=== PATIENT | female | born 1965 | race Caucasian/White ===

== ENCOUNTER 2016-10-17 06:28 | Inpatient (IN) | payer MEDICAID, OTHER ==
[~2016-10-17] VITALS: Ht 162.6 cm; Wt 61.2 kg
[~2016-10-17 06:28] MED LIST: CARV3 PO; DEXT15SY3 PO; FURO40 PO; LISI2.5T2 PO; METF500T4 PO; SIMV20TA6 PO
[2016-10-17] MEDS ORDERED: GLIP5 PO (06:31)
[2016-10-17 06:41] LABS: GLUCOSE,POINT OF CARE 197 MG/DL (70-110)
[2016-10-17] MEDS ORDERED: ASPIRIN 81 MG CHEWABLE TABLET PO ONE (07:00)
[2016-10-17] MEDS ORDERED: MORPHINE SULFATE 4 MG/ML SYRINGE IVP ONE (07:00)
[2016-10-17 07:10] LABS: BASOPHILS % (AUTO) 0.2 % (0.0-2.0); EOSINOPHILS % (AUTO) 1.5 % (1.0-6.0); HEMATOCRIT 38.8 % (36-46); LYMPHOCYTES # (AUTO) 1.1 K/uL (1.0-4.8); LYMPHOCYTES % (AUTO) 11.2 % (22.0-44.0); MEAN CORPUSCULAR HEMOGLOBIN 24.6 pg (26.0-34.0); MEAN CORPUSCULAR HGB CONC 30.8 G/dL (31.0-37.0); MEAN CORPUSCULAR VOLUME 80 fL (80-100); MONOCYTES # (AUTO) 0.8 K/uL (0.1-1.0); MONOCYTES % (AUTO) 8.3 % (2.0-9.0); NEUTROPHILS # (AUTO) 7.5 K/uL (1.8-7.7); NEUTROPHILS % (AUTO) 78.8 % (40.0-70.0); PLATELET COUNT (AUTO) 226 K/uL (150-450); RED BLOOD CELL COUNT(AUTO) 4.87 MIL/uL (4.00-5.20); RED CELL DISTRIBUTION WIDTH 21.2 % (11.5-14.5); WHITE BLOOD COUNT (AUTO) 9.5 K/uL (4.5-11.0)
[2016-10-17 07:11] LABS: RBC MORPHOLOGY COMMENT ABNORMAL RBC MORPH
[2016-10-17 07:31] LABS: B-TYPE NATRIURETIC PEPTIDE 1640 pg/mL (0-100)
[2016-10-17 07:34] LABS: ANION GAP 10 mmol/L (8-16); CALCIUM, TOTAL 8.5 mg/dL (8.8-10.5); CARBON DIOXIDE 24 mmol/L (22-29); CHLORIDE 103 mmol/L (98-107); CREATININE 0.91 mg/dL (0.60-1.30); GLOMERULAR FILTR. RATE CALC > 60 mL/min (>60); POTASSIUM 4.3 mmol/L (3.5-5.1); SODIUM SERUM 137 mmol/L (136-145); UREA NITROGEN, BLOOD 23 mg/dL (7-18)
[2016-10-17 07:41] LABS: ALANINE AMINOTRANSFERASE 44 U/L (12-78); ALBUMIN 2.9 g/dL (3.4-5.0); ASPARTATE AMINOTRANSFERASE 47 U/L (15-37); BILIRUBIN,TOTAL 0.8 mg/dL (0.1-1.0); CREATINE KINASE, TOTAL 61 U/L (26-192); TOTAL PROTEIN, SERUM 7.2 g/dL (6.4-8.2)
[2016-10-17] MEDS ORDERED: METOCLOPRAMIDE HCL 5 MG/ML 2 ML VIAL IVP ONE (08:00)
[2016-10-17] MEDS ORDERED: FUROSEMIDE 40 MG/4 ML VIAL IVP ONE (08:00)
[2016-10-17] MEDS ORDERED: MAGNESIUM HYDROXIDE SUSPENSION 30 ML UDCUP PO PRN (08:45)
[2016-10-17] MEDS ORDERED: ONDANSETRON HCL 4 MG/2 ML VIAL IVP PRN (08:45)
[2016-10-17] MEDS ORDERED: BISACODYL 10 MG RECTAL RECTAL SUPPOSITORY PR PRN (08:45)
[2016-10-17] MEDS ORDERED: DEXTROSE 50%-WATER 25 GM/50 ML SYRINGE IVP PRN (09:00)
[2016-10-17] MEDS ORDERED: CARVEDILOL 3.125 MG TABLET PO SCH (09:00)
[2016-10-17] MEDS ORDERED: LISINOPRIL 5 MG TABLET PO SCH (09:00)
[2016-10-17] MEDS: FUROSEMIDE 40 MG/4 ML VIAL IVP SCH ×2 (09:00→20:55)
[2016-10-17] MEDS: PANTOPRAZOLE SODIUM 40 MG DR TABLET PO SCH (09:26)
[2016-10-17 10:26] VITALS: BP 120/71
[2016-10-17 11:26] VITALS: BP 110/73
[2016-10-17] MEDS: INSULIN ASPART 100 UNITS/ML SQ PRN ×3 (12:44→21:08)
[2016-10-17 13:56] LABS: GLUCOSE,POINT OF CARE 179 MG/DL (70-110)
[2016-10-17] MEDS: OxyCODONE HCL/ACETAMINOPHEN 5-325 MG TABLET PO PRN (13:59)
[2016-10-17] MEDS ORDERED: INFLUENZA VIRUS VACCINE QVS 2016-17 (3YR+)/PF 60 MCG/0.5 ML SYRINGE IM ONE (14:00)
[2016-10-17 15:13] VITALS: BP 116/72
[2016-10-17] MEDS: HEPARIN SODIUM,PORCINE 5,000 UNITS/ML VIAL SQ SCH ×2 (16:24→23:26)
[2016-10-17] MEDS: SPIRONOLACTONE 25 MG TABLET PO SCH (16:24)
[2016-10-17] MEDS: MetFORMIN HCL 500 MG TABLET PO SCH ×2 (17:43→18:00)
[2016-10-17 19:46] VITALS: BP 109/64
[2016-10-17] MEDS: CARVEDILOL 6.25 MG TABLET PO SCH (21:03)
[2016-10-17] MEDS: ZOLPIDEM TARTRATE 5 MG TABLET PO PRN (21:04)
[2016-10-17 22:46] LABS: GLUCOSE COMMENT 1 Received Meds; GLUCOSE,POINT OF CARE 164 MG/DL (70-110)
[2016-10-17 23:42] VITALS: BP 114/73
[2016-10-18] VITALS (9 sets, daily range): BP systolic 97–118; BP diastolic 59–72
[2016-10-18] MEDS: GlipiZIDE 5 MG TABLET PO SCH (06:05)
[2016-10-18] MEDS: INSULIN ASPART 100 UNITS/ML SQ PRN ×3 (06:14→20:49)
[2016-10-18] MEDS: OxyCODONE HCL/ACETAMINOPHEN 5-325 MG TABLET PO PRN ×2 (06:14→17:39)
[2016-10-18 06:47] LABS: BASOPHILS % (AUTO) 0.3 % (0.0-2.0); EOSINOPHILS % (AUTO) 2.7 % (1.0-6.0); HEMATOCRIT 35.2 % (36-46); HEMOGLOBIN 10.9 g/dL (12.0-16.0); LYMPHOCYTES # (AUTO) 1.1 K/uL (1.0-4.8); LYMPHOCYTES % (AUTO) 16.8 % (22.0-44.0); MEAN CORPUSCULAR HEMOGLOBIN 24.8 pg (26.0-34.0); MEAN CORPUSCULAR HGB CONC 31.1 G/dL (31.0-37.0); MEAN CORPUSCULAR VOLUME 80 fL (80-100); MONOCYTES # (AUTO) 0.7 K/uL (0.1-1.0); MONOCYTES % (AUTO) 10.5 % (2.0-9.0); NEUTROPHILS # (AUTO) 4.5 K/uL (1.8-7.7); NEUTROPHILS % (AUTO) 69.7 % (40.0-70.0); PLATELET COUNT (AUTO) 207 K/uL (150-450); RED BLOOD CELL COUNT(AUTO) 4.41 MIL/uL (4.00-5.20); RED CELL DISTRIBUTION WIDTH 21.2 % (11.5-14.5); WHITE BLOOD COUNT (AUTO) 6.5 K/uL (4.5-11.0)
[2016-10-18 07:11] LABS: ALBUMIN 2.5 g/dL (3.4-5.0); BILIRUBIN,TOTAL 0.9 mg/dL (0.1-1.0); CALCIUM, TOTAL 8.4 mg/dL (8.8-10.5); CREATININE 1.03 mg/dL (0.60-1.30); MAGNESIUM 1.6 mg/dL (1.80-2.40); POTASSIUM 4.3 mmol/L (3.5-5.1); TOTAL PROTEIN, SERUM 6.4 g/dL (6.4-8.2)
[2016-10-18] MEDS: MetFORMIN HCL 500 MG TABLET PO SCH ×2 (08:10→17:57)
[2016-10-18] MEDS: HEPARIN SODIUM,PORCINE 5,000 UNITS/ML VIAL SQ SCH ×3 (08:11→23:54)
[2016-10-18] MEDS: PANTOPRAZOLE SODIUM 40 MG DR TABLET PO SCH (08:12)
[2016-10-18] MEDS: SPIRONOLACTONE 25 MG TABLET PO SCH (08:20)
[2016-10-18] MEDS ORDERED: MAGNESIUM SULFATE 4 GM/WATER 100 ML IV PRN (08:30)
[2016-10-18] MEDS ORDERED: MAGNESIUM SULFATE 2 GM in DEXTROSE 5%-WATER 50 ML IV PRN (08:30)
[2016-10-18] MEDS: LISINOPRIL 5 MG TABLET PO SCH (09:00)
[2016-10-18] MEDS: CARVEDILOL 6.25 MG TABLET PO SCH ×2 (09:00→21:51)
[2016-10-18 09:59] LABS: RBC MORPHOLOGY COMMENT ABNORMAL RBC MORPH
[2016-10-18] MEDS ORDERED: SODIUM CHLORIDE 0.9% 100 ML ONE (11:34)
[2016-10-18] MEDS ORDERED: BARIUM SULFATE 0.1% SUSPENSION 450 ML BOTTLE ONE (11:34)
[2016-10-18] MEDS ORDERED: IOVERSOL 320 MG/ML 100 ML VIAL ONE (11:34)
[2016-10-18] MEDS: MAGNESIUM OXIDE 400 MG TABLET PO PRN ×2 (14:21→19:13)
[2016-10-18] MEDS: FUROSEMIDE 40 MG/4 ML VIAL IVP SCH ×2 (14:22→20:33)
[2016-10-18 20:42] LABS: GLUCOSE,POINT OF CARE 196 MG/DL (70-110)
[2016-10-18] MEDS: ZOLPIDEM TARTRATE 5 MG TABLET PO PRN (21:51)
[2016-10-19 00:05] VITALS: BP 105/66
[2016-10-19] MEDS: MAGNESIUM OXIDE 400 MG TABLET PO PRN (00:48)
[2016-10-19 04:58] VITALS: BP 102/67
[2016-10-19 05:53] LABS: BASOPHILS # (AUTO) 0.03 K/uL (0.00-0.20); BASOPHILS % (AUTO) 0.4 % (0.0-2.0); EOSINOPHILS # (AUTO) 0.21 K/uL (0.00-0.70); HEMOGLOBIN 10.8 g/dL (12.0-16.0); LYMPHOCYTES # (AUTO) 1.1 K/uL (1.0-4.8); LYMPHOCYTES % (AUTO) 16.1 % (22.0-44.0); MEAN CORPUSCULAR HEMOGLOBIN 25.1 pg (26.0-34.0); MEAN CORPUSCULAR HGB CONC 31.8 G/dL (31.0-37.0); MEAN CORPUSCULAR VOLUME 79 fL (80-100); MONOCYTES # (AUTO) 0.7 K/uL (0.1-1.0); MONOCYTES % (AUTO) 10.6 % (2.0-9.0); NEUTROPHILS # (AUTO) 4.6 K/uL (1.8-7.7); NEUTROPHILS % (AUTO) 69.7 % (40.0-70.0); PLATELET COUNT (AUTO) 221 K/uL (150-450); RED BLOOD CELL COUNT(AUTO) 4.31 MIL/uL (4.00-5.20); RED CELL DISTRIBUTION WIDTH 21.4 % (11.5-14.5); WHITE BLOOD COUNT (AUTO) 6.6 K/uL (4.5-11.0)
[2016-10-19 06:33] LABS: ALBUMIN 2.6 g/dL (3.4-5.0); BILIRUBIN,TOTAL 0.8 mg/dL (0.1-1.0); CALCIUM, TOTAL 8.6 mg/dL (8.8-10.5); CREATININE 1.22 mg/dL (0.60-1.30); MAGNESIUM 1.9 mg/dL (1.80-2.40); POTASSIUM 4.4 mmol/L (3.5-5.1); TOTAL PROTEIN, SERUM 6.5 g/dL (6.4-8.2)
[2016-10-19] MEDS: GlipiZIDE 5 MG TABLET PO SCH (06:37)
[2016-10-19] MEDS: INSULIN ASPART 100 UNITS/ML SQ PRN ×2 (06:41→11:57)
[2016-10-19 07:19] VITALS: BP 101/64
[2016-10-19 07:58] LABS: RBC MORPHOLOGY COMMENT ABNORMAL RBC MORPH
[2016-10-19] MEDS: HEPARIN SODIUM,PORCINE 5,000 UNITS/ML VIAL SQ SCH (08:00)
[2016-10-19] MEDS: MetFORMIN HCL 500 MG TABLET PO SCH (08:00)
[2016-10-19] MEDS: LISINOPRIL 5 MG TABLET PO SCH (09:00)
[2016-10-19] MEDS: FUROSEMIDE 40 MG/4 ML VIAL IVP SCH (09:55)
[2016-10-19] MEDS: OxyCODONE HCL/ACETAMINOPHEN 5-325 MG TABLET PO PRN (09:59)
[2016-10-19] MEDS: CARVEDILOL 6.25 MG TABLET PO SCH (09:59)
[2016-10-19] MEDS: PANTOPRAZOLE SODIUM 40 MG DR TABLET PO SCH (09:59)
[2016-10-19] MEDS: SPIRONOLACTONE 25 MG TABLET PO SCH (10:00)
[2016-10-19 12:04] VITALS: BP 103/60
[2016-10-19] MEDS ORDERED: SPIR25 PO (13:48)
[2016-10-19] MEDS ORDERED: PANT40TA25 PO (13:48)
[2016-10-19] MEDS ORDERED: SIMV-259 PO (13:48)
[2016-10-19 20:15] LABS: GLUCOSE,POINT OF CARE 211 MG/DL (70-110)
[2016-10-20 06:57] LABS: GLUCOSE,POINT OF CARE 138 MG/DL (70-110)
[2016-10-20 06:57] LABS: GLUCOSE,POINT OF CARE 161 MG/DL (70-110)
[2016-10-20 06:57] LABS: GLUCOSE COMMENT 1 Received Meds; GLUCOSE,POINT OF CARE 250 MG/DL (70-110)
[2016-10-20 06:57] LABS: GLUCOSE COMMENT 1 Received Meds; GLUCOSE,POINT OF CARE 212 MG/DL (70-110)
[2016-10-21 20:00] LABS: GLUCOSE COMMENT 1 Received Meds; GLUCOSE,POINT OF CARE 145 MG/DL (70-110)
== END 2016-10-19 16:00 | disposition home or self-care (01) | DRG 194 ==
LOC: EMS 06:30 → 5N 08:42
PROVIDERS: ADMIT Hospitalist; ATTEND Hospitalist
DX: I11.0 Hypertensive heart disease with heart failure (principal); I47.2 Ventricular tachycardia; R18.8 Other ascites; E44.0 Moderate protein-calorie malnutrition; I42.8 Other cardiomyopathies; I27.2 Other secondary pulmonary hypertension; N20.0 Calculus of kidney; R16.2 Hepatomegaly with splenomegaly, not elsewhere classified; I50.23 Acute on chronic systolic (congestive) heart failure; I25.10 Atherosclerotic heart disease of native coronary artery without angina pectoris; E78.00 Pure hypercholesterolemia, unspecified; I34.0 Nonrheumatic mitral (valve) insufficiency; S46.812A Strain of other muscles, fascia and tendons at shoulder and upper arm level, left arm, initial encounter; X58.XXXA Exposure to other specified factors, initial encounter; E11.9 Type 2 diabetes mellitus without complications; E78.5 Hyperlipidemia, unspecified; G89.29 Other chronic pain; K80.20 Calculus of gallbladder without cholecystitis without obstruction; Z95.810 Presence of automatic (implantable) cardiac defibrillator; Z68.23 Body mass index [BMI] 23.0-23.9, adult; Z79.899 Other long term (current) drug therapy; Z98.890 Other specified postprocedural states; Z91.19 Patient's noncompliance with other medical treatment and regimen; Y93.89 Activity, other specified; Y92.89 Other specified places as the place of occurrence of the external cause; Y99.8 Other external cause status; Z28.21 Immunization not carried out because of patient refusal
CPT/HCPCS: 74177; 82962; 83735; 93005; 93306; 96374; 96375; 99285; J1644; J1940; J2270; J2765; J7050

== ENCOUNTER 2017-12-26 10:48 | Inpatient (IN) | payer MEDICAID, OTHER ==
[~2017-12-26] VITALS: Ht 165.1 cm; Wt 60.6 kg
[~2017-12-26 10:48] MED LIST changes: -DEXT15SY3 PO; +GLIP5 PO; +PANT40TA25 PO; +SIMV-259 PO; -SIMV20TA6 PO; +SPIR25 PO
[2017-12-26] MEDS ORDERED: BACL10TA PO (11:20)
[2017-12-26] MEDS ORDERED: LISI-661 PO (11:20)
[2017-12-26] MEDS ORDERED: INSLAN SQ (11:20)
[2017-12-26] MEDS ORDERED: MULT-1203 PO (11:20)
[2017-12-26 11:54] LABS: BASOPHILS % (AUTO) 0.4 % (0.0-2.0); EOSINOPHILS % (AUTO) 1.1 % (1.0-6.0); HEMATOCRIT 39.2 % (36-46); HEMOGLOBIN 13.2 g/dL (12.0-16.0); LYMPHOCYTES # (AUTO) 1.1 K/uL (1.0-4.8); MEAN CORPUSCULAR HEMOGLOBIN 28.9 pg (26.0-34.0); MEAN CORPUSCULAR HGB CONC 33.8 G/dL (31.0-37.0); MEAN CORPUSCULAR VOLUME 85 fL (80-100); MONOCYTES # (AUTO) 0.5 K/uL (0.1-1.0); MONOCYTES % (AUTO) 6.3 % (2.0-9.0); NEUTROPHILS % (AUTO) 78.2 % (40.0-70.0); PLATELET COUNT (AUTO) 207 K/uL (150-450); RED BLOOD CELL COUNT(AUTO) 4.59 MIL/uL (4.00-5.20); RED CELL DISTRIBUTION WIDTH 13.9 % (11.5-14.5)
[2017-12-26 12:07] LABS: ALBUMIN 3.4 g/dL (3.4-5.0); BILIRUBIN,TOTAL 0.4 mg/dL (0.1-1.0); CALCIUM, TOTAL 8.7 mg/dL (8.8-10.5); CREATININE 1.04 mg/dL (0.60-1.30); POTASSIUM 4.6 mmol/L (3.5-5.1); TOTAL PROTEIN, SERUM 7.2 g/dL (6.4-8.2)
[2017-12-26] MEDS ORDERED: SODIUM CHLORIDE 0.9% 1,000 ML IV ONE (12:30)
[2017-12-26] MEDS ORDERED: SODIUM CHLORIDE 0.9% 100 ML ONE (13:44)
[2017-12-26] MEDS ORDERED: IOVERSOL 350 MG/ML 100 ML VIAL ONE (13:44)
[2017-12-26 14:02] LABS: GLUCOSE,POINT OF CARE 387 MG/DL (70-110)
[2017-12-26] MEDS ORDERED: INSULIN REGULAR, HUMAN 100 UNITS/ML IVP ONE (14:30)
[2017-12-26 16:18] LABS: GLUCOSE,POINT OF CARE 173 MG/DL (70-110)
[2017-12-26 18:42] LABS: GLUCOSE,POINT OF CARE 173 MG/DL (70-110)
[2017-12-26] MEDS ORDERED: ONDANSETRON HCL 4 MG/2 ML VIAL IVP PRN ×2 (20:15→23:00)
[2017-12-26] MEDS ORDERED: ACETAMINOPHEN 325 MG TABLET PO PRN ×2 (20:15→23:00)
[2017-12-26] MEDS ORDERED: 0.9% SODIUM CHLORIDE 10 ML SYRINGE IVP PRN ×2 (20:15→23:00)
[2017-12-26 20:27] VITALS: BP 136/80
[2017-12-26] MEDS ORDERED: DEXTROSE 50%-WATER 25 GM/50 ML SYRINGE IVP PRN (23:00)
[2017-12-26] MEDS ORDERED: IPRATROPIUM BROMIDE 0.5 MG/2.5 ML NEB SOLUTION NEB PRN (23:00)
[2017-12-26] MEDS ORDERED: ZOLPIDEM TARTRATE 5 MG TABLET PO PRN (23:00)
[2017-12-26] MEDS ORDERED: ALBUTEROL SULFATE 2.5 MG/0.5 ML NEB SOLUTION NEB PRN (23:00)
[2017-12-26] MEDS: HEPARIN SODIUM,PORCINE 5,000 UNITS/ML VIAL SQ SCH (23:37)
[2017-12-27 00:17] VITALS: BP 130/76
[2017-12-27] MEDS: IPRATROPIUM BROMIDE 0.5 MG/2.5 ML NEB SOLUTION NEB SCH ×3 (02:00→13:50)
[2017-12-27] MEDS: ALBUTEROL SULFATE 2.5 MG/0.5 ML NEB SOLUTION NEB SCH ×3 (02:00→13:50)
[2017-12-27 04:57] VITALS: BP 137/75
[2017-12-27 05:58] LABS: BASOPHILS % (AUTO) 0.8 % (0.0-2.0); EOSINOPHILS % (AUTO) 1.7 % (1.0-6.0); HEMATOCRIT 39.9 % (36-46); HEMOGLOBIN 13.5 g/dL (12.0-16.0); LYMPHOCYTES # (AUTO) 1.6 K/uL (1.0-4.8); LYMPHOCYTES % (AUTO) 19.4 % (22.0-44.0); MEAN CORPUSCULAR HEMOGLOBIN 28.5 pg (26.0-34.0); MEAN CORPUSCULAR HGB CONC 33.7 G/dL (31.0-37.0); MEAN CORPUSCULAR VOLUME 85 fL (80-100); MONOCYTES # (AUTO) 0.6 K/uL (0.1-1.0); MONOCYTES % (AUTO) 6.9 % (2.0-9.0); NEUTROPHILS # (AUTO) 5.8 K/uL (1.8-7.7); NEUTROPHILS % (AUTO) 71.2 % (40.0-70.0); PLATELET COUNT (AUTO) 171 K/uL (150-450); RED BLOOD CELL COUNT(AUTO) 4.73 MIL/uL (4.00-5.20); RED CELL DISTRIBUTION WIDTH 14.1 % (11.5-14.5)
[2017-12-27] MEDS: INSULIN LISPRO 100 UNITS/ML SQ PRN ×3 (06:01→17:33)
[2017-12-27 06:40] LABS: ALANINE AMINOTRANSFERASE 46 U/L (12-78); ALBUMIN 3.2 g/dL (3.4-5.0); ALKALINE PHOSPHATASE 168 U/L (46-116); ANION GAP 9 mmol/L (8-16); ASPARTATE AMINOTRANSFERASE 28 U/L (15-37); BILIRUBIN,TOTAL 0.4 mg/dL (0.1-1.0); CALCIUM, TOTAL 8.9 mg/dL (8.8-10.5); CARBON DIOXIDE 26 mmol/L (22-29); CHLORIDE 101 mmol/L (98-107); CHOL/HDL RATIO 8.3 (3.9-5.7); CHOLESTEROL 199 mg/dL (131-200); CREATININE 0.75 mg/dL (0.60-1.30); GLOMERULAR FILTR. RATE CALC > 60 mL/min (>60); GLUCOSE,RANDOM 294 mg/dL (70-110); HDL CHOLESTEROL 24 mg/dL (40-60); LDL CHOL (CALC.) 131 mg/dL (0-130); POTASSIUM 4.3 mmol/L (3.5-5.1); SODIUM SERUM 136 mmol/L (136-145); THYROID STIMULATING HORMONE 1.98 uIU/mL (0.36-3.74); TOTAL PROTEIN, SERUM 6.9 g/dL (6.4-8.2); TRIGLYCERIDES 221 mg/dL (15-150); UREA NITROGEN, BLOOD 17 mg/dL (7-18)
[2017-12-27 08:19] VITALS: BP 130/74
[2017-12-27] MEDS: HEPARIN SODIUM,PORCINE 5,000 UNITS/ML VIAL SQ SCH ×2 (08:20→15:44)
[2017-12-27] MEDS: BACLOFEN 10 MG TABLET PO SCH ×2 (08:24→15:44)
[2017-12-27] MEDS ORDERED: PANTOPRAZOLE SODIUM 40 MG/VIAL IVP SCH (09:00)
[2017-12-27] MEDS ORDERED: LISINOPRIL 10 MG TABLET PO SCH (09:00)
[2017-12-27 11:30] VITALS: BP 101/60
[2017-12-27] MEDS ORDERED: SODIUM CHLORIDE 0.9% 50 ML ONE (13:14)
[2017-12-27] MEDS ORDERED: MAGNESIUM SULFATE 2 GM in DEXTROSE 5%-WATER 50 ML IV ONE (13:15)
[2017-12-27] MEDS ORDERED: ASPI81TA39 PO (14:07)
[2017-12-27] MEDS ORDERED: ATOR20TA86 PO (14:07)
[2017-12-27 14:57] LABS: GLUCOMETER DEV NAME(LOC) 5N 2S; GLUCOSE,POINT OF CARE 254 MG/DL (70-110)
[2017-12-27 15:42] VITALS: BP 109/58
[2017-12-27 20:38] LABS: GLUCOMETER DEV NAME(LOC) 5N 2S; GLUCOSE,POINT OF CARE 275 MG/DL (70-110)
[2017-12-27 20:43] LABS: GLUCOMETER DEV NAME(LOC) 5S 2N; GLUCOSE,POINT OF CARE 266 MG/DL (70-110)
== END 2017-12-27 18:40 | disposition home or self-care (01) | DRG 45 ==
LOC: EMS 10:49 → 5N 19:19
PROVIDERS: ADMIT Internal Medicine; ATTEND Internal Medicine
DX: I63.9 Cerebral infarction, unspecified (principal); I50.9 Heart failure, unspecified; I11.0 Hypertensive heart disease with heart failure; I67.2 Cerebral atherosclerosis; E11.65 Type 2 diabetes mellitus with hyperglycemia; E78.00 Pure hypercholesterolemia, unspecified; I25.10 Atherosclerotic heart disease of native coronary artery without angina pectoris; E03.9 Hypothyroidism, unspecified; G89.29 Other chronic pain; M54.9 Dorsalgia, unspecified; Z86.73 Personal history of transient ischemic attack (TIA), and cerebral infarction without residual deficits; Z95.0 Presence of cardiac pacemaker; Z79.84 Long term (current) use of oral hypoglycemic drugs; Z79.899 Other long term (current) drug therapy; Z98.891 History of uterine scar from previous surgery; Z82.49 Family history of ischemic heart disease and other diseases of the circulatory system; Z83.3 Family history of diabetes mellitus
CPT/HCPCS: 70450; 70496; 82962; 83036; 83735; 84443; 93005; 93306; 93880; 94640; 97110; 97161; 97165; C9113; J1644; J1815; J3475; J7050; J7060